=== PATIENT | female | born 1980 | race Caucasian/White ===

== ENCOUNTER 2017-05-30 08:49 | Day surgery (SDC) | payer OTHER ==
[2017-05-25 14:30] VITALS: BMI 21.6
[~2017-05-30 08:49] MED LIST: DEXAMETHASONE SOD PHOSPHATE 10 MG/ML 1 ML VIAL IV ONE; HEPARIN SODIUM,PORCINE 5,000 UNIT/ML 1 ML VIAL SQ ONE; HYDROmorphone 0.5 MG/0.5 ML SYRINGE IVP PRN; LACTATED RINGERS 1,000 ML IV SCH; LIDOCAINE 1% 20 ML VIAL (10MG/ML) FOR IV START INTRADERMA PRN; Pre Op ABX Message 1 EACH MISC MISCELLANE ONE; SCOPOLAMINE 1.5MG/72HR PATCH TRANSDERM ONE
[2017-05-30] MEDS ORDERED: LIDOCAINE 1% 20 ML VIAL (10MG/ML) FOR IV START INTRADERMA ONE (10:16)
[2017-05-30] MEDS: ONDANSETRON 4 MG/2 ML VIAL IVP STA ×2 (10:25→10:30)
[2017-05-30] MEDS: MIDAZOLAM 2 MG/2 ML VIAL IV ONE ×2 (10:26→10:35)
[2017-05-30] MEDS ORDERED: LIDOCAINE 1% INJ 10MG/ML (20 ML MDV) ONE (10:54)
[2017-05-30] MEDS ORDERED: fentaNYL (PF) 50 MCG/ML 2 ML AMP ONE (10:54)
[2017-05-30] MEDS ORDERED: PROPOFOL 10 MG/ML 20 ML VIAL IV ONE (10:54)
[2017-05-30] MEDS ORDERED: LIDOCAINE 1% (PF) 10MG/ML VIAL SQ ONE ×2 (11:06)
[2017-05-30] MEDS ORDERED: NALOXONE 0.4 MG/ML 1 ML VIAL IV PRN (11:26)
[2017-05-30] MEDS ORDERED: ACETAMINOPHEN TAB 325 MG TAB PO PRN (11:26)
[2017-05-30 11:32] VITALS: TEMP 97.2
--- NOTE | 2017-05-30 11:37 | P.OP ---
Date of Procedure: 05/30/17 Procedure(s) Performed: PREOPERATIVE DIAGNOSIS: Back cyst POSTOPERATIVE DIAGNOSIS: Same PROCEDURE: Excision back cyst SURGEON: Celia EBL: Minimal ANESTHESIA: sedation COMPLICATIONS: None OPERATIVE PROCEDURE: Patient was placed under sedation anesthesia and then placed in the right decubitus position. An eliptical incision was made in the left lower back overlying the palpable mass. Dissection through the subcutaneous tissues took place using electrocautery. The cystic mass was identified and fully excised with the use of blunt dissection and Sharp dissection. This measured 1.5 x 2.5 cm in size. Subcutaneous tissues were then closed using 3-0 Vicryl sutures and the skin using 4-0 Monocryl sutures. Steri-Strips and sterile dressings were applied. DISPOSITION: Stable to recovery room
[2017-05-30] MEDS ORDERED: ONDANSETRON 4 MG/2 ML VIAL IVP ONE (12:09)
[2017-05-30] MEDS ORDERED: LACTATED RINGERS 1,000 ML IV ONE (12:10)
[2017-05-30] MEDS ORDERED: KETOROLAC 30 MG/ML 1 ML VIAL IVP ONE ×2 (13:25→13:28)
[2017-05-30] MEDS ORDERED: PROMETHAZINE INJ 25 MG/ML 1 ML VIAL IVPB ONE (13:29)
[2017-05-30 13:38] VITALS: BP 99/67; PULSE 62; RESP 16
== END 2017-05-30 14:45 | disposition home or self-care (01) ==
LOC: OR 08:49
PROVIDERS: ATTEND Surgery
DX: L72.3 Sebaceous cyst (principal); Z79.899 Other long term (current) drug therapy; Z88.1 Allergy status to other antibiotic agents; Z88.5 Allergy status to narcotic agent; Z88.2 Allergy status to sulfonamides; Z88.6 Allergy status to analgesic agent; Z88.8 Allergy status to other drugs, medicaments and biological substances
CPT/HCPCS: 88304; 11403; J2250; J1644; J1100; J2550; J2405; J2001 ×2; J3010; J1885; J2704

== ENCOUNTER 2018-04-01 10:23 | Emergency (ER) | payer OTHER ==
[2018-04-01 10:37] VITALS: RESP 18
[2018-04-01] MEDS ORDERED: LORazepam 2 MG/ML INJ IV STA (10:45)
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
[2018-04-01] MEDS ORDERED: KETOROLAC 30 MG/ML 1 ML VIAL IVP STA (12:12)
[2018-04-01 12:28] VITALS: BP 100/60; PULSE 100; TEMP 98.2
== END 2018-04-01 12:37 | disposition home or self-care (01) ==
LOC: EC 10:23
DX: S06.0X0A Concussion without loss of consciousness, initial encounter (principal); Z87.891 Personal history of nicotine dependence; Z88.2 Allergy status to sulfonamides; Z88.1 Allergy status to other antibiotic agents; Z88.5 Allergy status to narcotic agent; Z88.8 Allergy status to other drugs, medicaments and biological substances; V43.52XA Car driver injured in collision with other type car in traffic accident, initial encounter
CPT/HCPCS: 72125; 70486; 70450; 99284; 96374; 96375; J2060; J1885

== ENCOUNTER 2018-04-06 10:26 | Emergency (ER) | payer OTHER ==
[2018-04-06 10:30] VITALS: BP 112/71; PULSE 112; RESP 18; TEMP 98
[2018-04-06] MEDS ORDERED: ACETAMINOPHEN TAB 500 MG TAB PO STA (11:08)
[2018-04-06] MEDS ORDERED: ONDANSETRON 4 MG TAB PO STA (11:08)
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
== END 2018-04-06 12:50 | disposition home or self-care (01) ==
LOC: EC 10:26
DX: S06.0X0D Concussion without loss of consciousness, subsequent encounter (principal); Z86.73 Personal history of transient ischemic attack (TIA), and cerebral infarction without residual deficits; Z87.891 Personal history of nicotine dependence; Z88.5 Allergy status to narcotic agent; Z88.1 Allergy status to other antibiotic agents; Z88.2 Allergy status to sulfonamides; Z88.8 Allergy status to other drugs, medicaments and biological substances; V89.2XXD Person injured in unspecified motor-vehicle accident, traffic, subsequent encounter
CPT/HCPCS: 99284

== ENCOUNTER → 2018-05-10 | Outpatient (CLI) | payer OTHER ==
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
== END | disposition home or self-care (01) ==
LOC: RADMRIMAIN 05:51
PROVIDERS: ATTEND Family Medicine
DX: R93.0 Abnormal findings on diagnostic imaging of skull and head, not elsewhere classified (principal)
CPT/HCPCS: 70551

== ENCOUNTER → 2018-11-01 | Outpatient (CLI) | payer OTHER ==
[2018-11-01 14:41] LABS: Basophils % (A) 1 %; Eosinophils # (A) 0.1 k/uL (0-0.7); Eosinophils % (A) 1 %; HCT 43.3 % (34.0-46.0); HGB 14.3 gm/dL (11.4-16.0); Lymphocytes # (A) 1.9 k/uL (1.0-4.8); Lymphocytes % (A) 32 %; MCH 34.1 pg (25.0-35.0); MCHC 33.1 g/dL (31.0-37.0); Macrocytosis Slight; Mean Platelet Volume 7.5; Monocytes # (A) 0.3 k/uL (0-1.0); Monocytes % (A) 6 %; Neutrophils # (A) 3.6 k/uL (1.3-7.7); Neutrophils % (A) 59 %; Platelet Count 225 k/uL (150-450); RDW 12.8 % (11.5-15.5); WBC 6.1 k/uL (3.8-10.6)
[2018-11-01 19:42] LABS: Helicobacter pylori IgG Abs 0.48 U/mL
[2018-11-01 20:28] LABS: Albumin 4.4 g/dL (3.80-4.90); Albumin/Globulin Ratio 1.69 (1.60-3.17); Anion Gap 9.5 mmol/L (4.00-12.00); Calcium 9.2 mg/dL (8.7-10.3); Carbon Dioxide 26.5 mmol/L (21.6-31.8); Globulin 2.6 g/dL (1.6-3.3); Potassium 4.4 mmol/L (3.5-5.5); Total Bilirubin 0.7 mg/dL (0.2-1.2)
[2018-11-01 20:42] LABS: T4, Free (Free Thyroxine) 1.2 ng/dL (0.80-1.80)
[2018-11-01 21:01] LABS: Gliadin AB IgA, Unit 0.7 U/mL
== END | disposition home or self-care (01) ==
LOC: LABWHC1 14:02
PROVIDERS: ATTEND Internal Medicine
DX: R10.13 Epigastric pain (principal)
CPT/HCPCS: 36415; 80053; 82150; 83516; 83690; 84439; 84443; 85025; 86677

== ENCOUNTER → 2019-05-12 | Outpatient (CLI) | payer OTHER ==
--- NOTE | 2019-05-12 15:49 | US ---
EXAMINATION TYPE: US carotid duplex BILAT DATE OF EXAM: 05/12/2019 COMPARISON: Prior carotid ultrasound November 15, 2015. 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 TIA x 2 years ago, No HTN EXAM MEASUREMENTS: RIGHT: Peak Systolic Velocity (PSV) cm/sec ----- Right CCA: 81.6 ----- Right ICA: 94.6 ----- Right ECA: 85.5 ICA/CCA ratio: 1.2 RIGHT: End Diastole cm/sec ----- Right CCA: 27.3 ----- Right ICA: 42.5 ----- Right ECA: 16.1 LEFT: Peak Systolic Velocity (PSV) cm/sec ----- Left CCA: 88.9 ----- Left ICA: 84.4 ----- Left ECA: 84.4 ICA/CCA ratio: 0.9 LEFT: End Diastole cm/sec ----- Left CCA: 25.4 ----- Left ICA: 34.8 ----- Left ECA: 12.8 VERTEBRALS (direction of flow): Right Vertebral: Antegrade Left Vertebral: Antegrade Rhythm: Normal Shay scale images showed no significant focal plaque at carotid bulb level bilaterally. IMPRESSION: No hemodynamically significant stenosis is seen in either internal carotid artery. Criteria for Assigning % of Stenosis / Diameter reduction (Estimation based on the indirect measurements of the internal carotid artery velocities (ICA PSV). 1. Normal (no stenosis)=ICA PSV < 125 cm/s: ratio < 2.0: ICA EDV<40 cm/s. 2. Less than 50% stenosis=ICA PSV < 125 cm/s: ratio < 2.0: ICA EDV<40 cm/s. 3. 50 to 69% stenosis=ICA PSV of 125 to 230 cm/s: ration 2.0 ? 4.0: ICA EDV 40-100 cm/s. 4. Greater than 70% stenosis to near occlusion= ICA PSV > 230 cm/s: ratio > 4.0: ICA EDV > 100 cm/s. 5. Near occlusion= ICA PSV velocities may be low or undetectable: variable ratio and ICA EDV. 6. Total occlusion=unable to detect flow.
--- NOTE | 2019-05-12 16:26 | MR ---
EXAMINATION TYPE: MR brain wo con DATE OF EXAM: 05/12/2019, MRI brain 05/10/2018 COMPARISON: CT brain 04/01/2018 HISTORY: H02.402, G 45.9, G 43.009 CONTRAST: Performed utilizing 0 mL intravenous Gadavist gadolinium contrast. TECHNIQUE: Multiplanar, multiecho imaging on a 3.0 Anusha magnet is performed through the brain. Stud y is performed within 24 hours of arrival to the hospital. The craniovertebral junction is normal. The pituitary is normal. Portion of the optic chiasm visual ized is normal. There are normal vascular flow voids within the visualized intracranial cerebral vasc ulature. The anterior and posterior communicating arteries are patent. Diffusion-weighted imaging is performed. No abnormal hyperintensity is present to suggest an acute i ntracranial infarct or acute ischemic change. There is a punctate subcortical white matter change in the right parietal lobe, stable from compariso n a prior right frontal lobe white matter change is not evident currently. Temporal lobes are symmetr ical Ventricles and sulci are appropriate for the patient age. The globes as visualized are normal. Extraocular muscles and optic nerves appear normal. IMPRESSIONS: 1. Normal noncontrast MRI brain. 2. White matter changes, not out of proportion to the patient age, are less evident on the current ex am.
--- NOTE | 2019-05-13 07:26 | ECHOF ---
Referral Reason:H02.402 Ptosis of left eyelid / G45.9 TIA /G43.009 MEASUREMENTS -------- HEIGHT: 160.0 cm WEIGHT: 51.7 kg BP: 106/61 RVIDd: 2.5 cm (< 3.3) IVSd: 1.0 cm (0.6 - 1.1) LVIDd: 4.0 cm (3.9 - 5.3) LVPWd: 0.9 cm (0.6 - 1.1) IVSs: 1.4 cm LVIDs: 2.6 cm LVPWs: 1.3 cm LA Diam: 2.6 cm (2.7 - 3.8) LAESV Index (A-L): 15.44 ml/m Ao Diam: 2.8 cm (2.0 - 3.7) AV Cusp: 2.1 cm (1.5 - 2.6) MV EXCURSION: 15.987 mm (> 18.000) MV EF SLOPE: 115 mm/s (70 - 150) EPSS: 0.3 cm MV E Michael: 1.01 m/s MV DecT: 379 ms MV A Michael: 0.49 m/s MV E/A Ratio: 2.08 FINDINGS -------- Sinus rhythm. This was a technically good study. The left ventricular size is normal. Left ventricular wall thickness is normal. Overall left vent ricular systolic function is normal with, an EF between 55 - 60 %. The right ventricle is normal in size. Normal LA size by volume 22+/-6 ml/m2. The right atrial size is normal. Interatrial and interventricular septum intact. The aortic valve is trileaflet, and appears structurally normal. No aortic stenosis or regurgitation. The mitral valve is normal. There is trace to mild mitral regurgitation. Mild tricuspid regurgitation present. Right ventricular systolic pressure is normal at < 35 mmHg. Trace/mild (physiologic) pulmonic regurgitation. The aortic root size is normal. Normal inferior vena cava with normal inspiratory collapse consistent with estimated right atrial pre ssure of 5 mmHg. There is no pericardial effusion. CONCLUSIONS -------- 1. Sinus rhythm. 2. This was a technically good study. 3. The left ventricular size is normal. 4. Left ventricular wall thickness is normal. 5. Overall left ventricular systolic function is normal with, an EF between 55 - 60 %. 6. Normal LA size by volume 22+/-6 ml/m2. 7. The aortic valve is trileaflet, and appears structurally normal. No aortic stenosis or regurgitati on. 8. There is trace to mild mitral regurgitation. 9. Mild tricuspid regurgitation present. 10. Right ventricular systolic pressure is normal at < 35 mmHg. 11. Trace/mild (physiologic) pulmonic regurgitation. 12. The aortic root size is normal. 13. Normal inferior vena cava with normal inspiratory collapse consistent with estimated right atrial pressure of 5 mmHg. 14. There is no pericardial effusion. SPECIALTY SALES REPRESENTATIVE: Samantha Hudson RDCS
== END ==
LOC: RADECHMAIN 14:48
PROVIDERS: ATTEND Psychiatry & Neurology Neurology
DX: R90.89 Other abnormal findings on diagnostic imaging of central nervous system (principal); H02.402 Unspecified ptosis of left eyelid; G45.9 Transient cerebral ischemic attack, unspecified
CPT/HCPCS: 70551; 93306; 93880

== ENCOUNTER → 2019-06-27 | Outpatient (CLI) | payer OTHER ==
--- NOTE | 2019-06-28 14:42 | MR ---
EXAMINATION TYPE: MR angio head wo con DATE OF EXAM: 06/27/2019 COMPARISON: None HISTORY: memory loss TECHNIQUE: Time of flight images focusing on the [place] of [place] were performed without contrast. FINDINGS: There is arterial flow in the anterior middle and posterior cerebral arteries bilaterally. There is bilateral distal internal carotid artery flow. There is arterial flow in the vertebrobasilar artery system. There is no evidence of hemodynamic stenosis. I see no evidence of aneurysm or neovas cularity. There is no mass effect. IMPRESSION: Normal MR angiogram of the brain.
== END | disposition home or self-care (01) ==
LOC: RADMRIMAIN 15:25
PROVIDERS: ATTEND Psychiatry & Neurology Neurology
DX: G43.009 Migraine without aura, not intractable, without status migrainosus (principal); H02.402 Unspecified ptosis of left eyelid; Z86.73 Personal history of transient ischemic attack (TIA), and cerebral infarction without residual deficits
CPT/HCPCS: 70544

== ENCOUNTER 2020-01-28 11:32 | Emergency (ER) | payer OTHER ==
[2020-01-28 11:35] VITALS: BP 112/75; PULSE 59; RESP 18; TEMP 98.1
[2020-01-28] MEDS ORDERED: CEPHALEXIN 500MG STARTER PACK 4 CAP BTL PO STA (11:51)
[2020-01-28] MEDS ORDERED: DIPH,PERTUS(ACELL)TETVAC-LF 0.5 ML VIAL IM ONE (11:51)
[2020-01-28] MEDS ORDERED: IBUPROFEN 600 MG TAB PO STA (11:51)
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
--- NOTE | 2020-01-28 12:28 | ED ---
Wound/Laceration HPI - General Chief Complaint: Wound/Laceration Stated Complaint: foot pain Time Seen by Provider: 01/28/20 11:39 Source: patient Mode of arrival: ambulatory Limitations: no limitations - History of Present Illness Initial Comments: 39-year-old female patient presents to the emergency department today for evaluation of wound to the right heel. Patient states yesterday evening she was fishing, states she became excited and was jumping and her barefoot came down on to exposed rebar. Patient states that the area has been quite painful. She has pain especially with walking and applying pressure to the site. She did cleanse the area and applied antibacterial ointment. Patient has been taking Tylenol but denies other medication use. She denies any other injuries. She is unsure when her last tetanus vaccine was administered. Patient denies any headache, neck pain, back pain, chest pain, shortness of breath, dizziness, weakness, abdominal pain, nausea, vomiting, or difficulties with bowel movements or urination. - Related Data Home Medications Medication Instructions Recorded Confirmed ALPRAZolam [Xanax] 1 mg PO TID PRN 04/01/18 02/11/19 Previous Rx's Medication Instructions Recorded Acetaminophen Tab [Tylenol Tab] 1,000 mg PO Q8HR #20 tablet 04/06/18 Ondansetron Odt [Zofran Odt] 4 mg PO Q8HR PRN #20 tab 04/06/18 Cephalexin [Keflex] 500 mg PO BID #14 cap 01/28/20 Ibuprofen [Motrin] 600 mg PO Q8HR PRN #30 tab 01/28/20 Allergies Allergy/AdvReac Type Severity Reaction Status Date / Time Antihistamines - Alkylamine Allergy Rash/Hives Verified 01/28/20 11:36 Antihistamines - Ethanolamine Allergy Rash/Hives Verified 01/28/20 11:36 Antihistamines - Allergy Rash/Hives Verified 01/28/20 11:36 Ethylenediamine Antihistamines - Piperazine Allergy Rash/Hives Verified 01/28/20 11:36 Antihistamines - Piperidine Allergy Rash/Hives Verified 01/28/20 11:36 codeine Allergy Anaphylaxis Verified 01/28/20 11:36 diphenhydramine HCl Allergy Vomiting Verified 01/28/20 11:36 [From Benadryl] erythromycin base Allergy Unknown Verified 01/28/20 11:36 morphine Allergy Unknown Verified 01/28/20 11:36 Sulfa (Sulfonamide Allergy Unknown Verified 01/28/20 11:36 Antibiotics) sulfamethoxazole Allergy Unknown Verified 01/28/20 11:36 [From Bactrim] trimethoprim [From Bactrim] Allergy Unknown Verified 01/28/20 11:36 hydromorphone [From Dilaudid] AdvReac Unknown Verified 01/28/20 11:36 bioxen Allergy Unknown Uncoded 01/28/20 11:36 Review of Systems ROS Statement: Those systems with pertinent positive or pertinent negative responses have been documented in the HPI. ROS Other: All systems not noted in ROS Statement are negative. Past Medical History Past Medical History: Cancer, CVA/TIA, GERD/Reflux Additional Past Medical History / Comment(s): anxiety, cervical cancer 3 years ago. States has palpitations @ times. States not eating much, has heartburn and problems with constipation. History of Any Multi-Drug Resistant Organisms: None Reported Past Surgical History: Appendectomy, Cholecystectomy, Hysterectomy Additional Past Surgical History / Comment(s): Laprascopy x 2. Past Anesthesia/Blood Transfusion Reactions: Postoperative Nausea & Vomiting (PONV) Past Psychological History: Anxiety, Panic Disorder Smoking Status: Former smoker - Past Family History Mother Family Medical History: No Reported History General Exam Limitations: no limitations General appearance: alert, in no apparent distress, other (This is a well- developed, well-nourished adult female patient in no acute distress. Vital signs upon presentation are temperature 98.1F, pulse 59, respirations 18, blood pressure 112/75, pulse ox 100% on room air) Eye exam: Present: normal appearance, PERRL, EOMI. Absent: scleral icterus, conjunctival injection, periorbital swelling ENT exam: Present: normal exam, normal oropharynx, mucous membranes moist Respiratory exam: Present: normal lung sounds bilaterally. Absent: respiratory distress, wheezes, rales, rhonchi, stridor Cardiovascular Exam: Present: regular rate, normal rhythm, normal heart sounds. Absent: systolic murmur, diastolic murmur, rubs, gallop, clicks Extremities exam: Present: full ROM, tenderness (Right heel), normal capillary refill, other (There is abrasion and superficial puncture wound to the right heel. There is surrounding tenderness. No surrounding erythema or drainage. Skin is otherwise pink, warm, dry. Cap refills less than 3 seconds. Pedal and posttibial pulses are 2+ and equal bilaterally.). Absent: normal inspection, pedal edema, joint swelling, calf tenderness Neurological exam: Present: alert, oriented X3, CN II-XII intact Psychiatric exam: Present: normal affect, normal mood Skin exam: Present: warm, dry, intact, normal color. Absent: rash Course Vital Signs 01/28/20 11:32 Temperature 98.1 F Pulse Rate 59 L Respiratory 18 Rate Blood Pressure 112/75 O2 Sat by Pulse 100 Oximetry Medical Decision Making - Medical Decision Making 39-year-old female patient presented to the emergency department today for evaluation of right heel injury. Physical examination did reveal abrasion/puncture wound to the right heel with no surrounding erythema or drainage. There is surrounding tenderness. X-ray was obtained and showed no evidence for foreign body, did show soft tissue swelling. Patient was given anti-inflammatory pain medication. She was started on Keflex. She'll be instructed to follow-up with her primary care physician for recheck in 1-2 days. Return parameters were discussed in detail. She verbalizes understanding and agrees with this plan. - Radiology Data Radiology results: report reviewed, image reviewed X-ray of the right foot was obtained. Report was reviewed in its entirety. Impression by Dr. Skinner shows no acute fracture dislocation evident in the right foot. Joint spaces and the right foot appear within normal limits. Mild to moderate subcutaneous edema along the plantar surface hindfoot level without suspicious radiodense foreign body. Disposition Clinical Impression: Injury of heel, Puncture wound Disposition: HOME SELF-CARE Condition: Good Instructions (If sedation given, give patient instructions): Puncture Wound (ED), Acute Wound Care (ED) Additional Instructions: Keep area clean and dry. Cleanse twice daily with warm water and antibacterial soap. Cover with antibiotic ointment. Avoid direct pressure on the wound. Use crutches if you have them. Take Tylenol Motrin for pain control. Complete antibiotic prescription in full. Follow-up with your primary care physician for recheck in 1-2 days. Return to the emergency department immediately for any new, worsening, or concerning symptoms Prescriptions: Cephalexin [Keflex] 500 mg PO BID #14 cap Ibuprofen [Motrin] 600 mg PO Q8HR PRN #30 tab PRN Reason: Pain Is patient prescribed a controlled substance at d/c from ED?: No Referrals: Isra Valdes DO [Primary Care Provider] - 1-2 days Time of Disposition: 12:28
== END 2020-01-28 12:41 | disposition home or self-care (01) ==
LOC: EC 11:32
DX: S91.331A Puncture wound without foreign body, right foot, initial encounter (principal); F41.9 Anxiety disorder, unspecified; Z88.1 Allergy status to other antibiotic agents; Z88.2 Allergy status to sulfonamides; Z88.5 Allergy status to narcotic agent; Z88.8 Allergy status to other drugs, medicaments and biological substances; Z79.899 Other long term (current) drug therapy; Z86.73 Personal history of transient ischemic attack (TIA), and cerebral infarction without residual deficits; Z87.891 Personal history of nicotine dependence; Z90.89 Acquired absence of other organs; Z90.49 Acquired absence of other specified parts of digestive tract; Z90.710 Acquired absence of both cervix and uterus; Z85.41 Personal history of malignant neoplasm of cervix uteri; W22.09XA Striking against other stationary object, initial encounter; Y93.39 Activity, other involving climbing, rappelling and jumping off; Y92.89 Other specified places as the place of occurrence of the external cause; Y99.8 Other external cause status; Z23 Encounter for immunization
CPT/HCPCS: 90471; 90715; 99283

== ENCOUNTER 2020-03-18 07:14 | Day surgery (SDC) | payer OTHER ==
[2020-03-16 12:46] VITALS: BMI 19.1
[~2020-03-18 07:14] MED LIST changes: -DEXAMETHASONE SOD PHOSPHATE 10 MG/ML 1 ML VIAL IV ONE; -HEPARIN SODIUM,PORCINE 5,000 UNIT/ML 1 ML VIAL SQ ONE; -HYDROmorphone 0.5 MG/0.5 ML SYRINGE IVP PRN; -LIDOCAINE 1% 20 ML VIAL (10MG/ML) FOR IV START INTRADERMA PRN; -SCOPOLAMINE 1.5MG/72HR PATCH TRANSDERM ONE; +fentaNYL (PF) 50 MCG/ML 2 ML AMP IV PRN
[2020-03-18 07:30] VITALS: TEMP 97.3
[2020-03-18] MEDS ORDERED: ONDANSETRON 4 MG/2 ML VIAL ONE (07:30)
[2020-03-18] MEDS ORDERED: SCOPOLAMINE 1.5MG/72HR PATCH TRANSDERM ONE (07:39)
--- NOTE | 2020-03-18 07:46 | P.GSHP ---
History of Present Illness H&P Date: 03/18/20 CHIEF COMPLAINT: Forehead mass HISTORY OF PRESENT ILLNESS: The patient is a 40 year-old female with history of mass along the forehead. She presents today for surgical excision. PAST MEDICAL HISTORY: Please see list. PAST SURGICAL HISTORY: Please see list. MEDICATIONS: Please see list. ALLERGIES: Please see list. SOCIAL HISTORY: No illicit drug use FAMILY HISTORY: No reports of Crohn disease or ulcerative colitis. REVIEW OF ORGAN SYSTEMS: CONSTITUTIONAL: No reports of fevers or chills. GI: Denies any blood in stools or constipation. PHYSICAL EXAM: VITAL SIGNS: Stable SKIN: Well perfused. Good skin turgor. 2 cm lesion overlying the forehead Musculoskeletal: No clubbing cyanosis or edema GENERAL: Well developed and in no acute distress. Pleasant. HEENT: No sclera icterus. Extraocular movements grossly intact. Moist buccal mucosa. Head is atraumatic, normocephalic. Hears conversational speech. No nasal drainage. NECK: Supple without lymphadenopathy. No JV distention. CHEST: Non-labored respirations and equal bilateral excursions. CARDIOVASCULAR: Regular rate and rhythm. Palpable 2+ radial pulses. ABDOMEN: Soft. Non-tender. Nondistended. NEUROLOGIC: No focal or lateralizing signs. PSYCH: Appropriate affect. Alert and oriented to person, place and time. ASSESSMENT: 1. Forehead mass PLAN: 1. Will proceed with excision of forehead mass. Benefits and risks including potential scarring were reviewed. 2. DVT prophylaxis. 3. Antibiotic prophylaxis. 4. Time of recovery, at least one week. Past Medical History Past Medical History: Cancer, GERD/Reflux Additional Past Medical History / Comment(s): migraines, hx cervical cancer, "hives a lot from allergies", History of Any Multi-Drug Resistant Organisms: None Reported Past Surgical History: Appendectomy, Cholecystectomy, Hysterectomy Additional Past Surgical History / Comment(s): mult laparoscopies Past Anesthesia/Blood Transfusion Reactions: Family History of Problems w/ Anesthesia, Motion Sickness, Postoperative Nausea & Vomiting (PONV) Additional Past Anesthesia/Blood Transfusion Reaction / Comment(s): "grandmother had hyperthermia with anesthesia, not sure if it was malignant hyperthermia". pt states she was tested and ok Smoking Status: Former smoker - Past Family History Sister(s) Family Medical History: Cancer Medications and Allergies Home Medications Medication Instructions Recorded Confirmed Type ALPRAZolam [Xanax] 0.5 mg PO BID 04/01/18 03/18/20 History Allergies Allergy/AdvReac Type Severity Reaction Status Date / Time adhesive tape Allergy blisters Verified 03/18/20 07:26 Antihistamines - Alkylamine Allergy Rash/Hives Verified 03/18/20 07:26 Antihistamines - Ethanolamine Allergy Rash/Hives Verified 03/18/20 07:26 Antihistamines - Allergy Rash/Hives Verified 03/18/20 07:26 Ethylenediamine Antihistamines - Piperazine Allergy Rash/Hives Verified 03/18/20 07:26 Antihistamines - Piperidine Allergy Rash/Hives Verified 03/18/20 07:26 codeine Allergy Anaphylaxis Verified 03/18/20 07:26 diphenhydramine HCl Allergy Vomiting Verified 03/18/20 07:26 [From Benadryl] erythromycin base Allergy Unknown Verified 03/18/20 07:26 morphine Allergy Unknown Verified 03/18/20 07:26 Sulfa (Sulfonamide Allergy Unknown Verified 03/18/20 07:26 Antibiotics) sulfamethoxazole Allergy Unknown Verified 03/18/20 07:26 [From Bactrim] trimethoprim [From Bactrim] Allergy Unknown Verified 03/18/20 07:26 hydromorphone [From Dilaudid] AdvReac Unknown Verified 03/18/20 07:26 bioxen Allergy Unknown Uncoded 03/18/20 07:26 Surgical - Exam Vital Signs Temp Pulse Resp BP Pulse Ox 97.3 F L 64 16 116/64 100 03/18/20 07:28 03/18/20 07:28 03/18/20 07:28 03/18/20 07:28 03/18/20 07:28
[2020-03-18] MEDS ORDERED: ACETAMINOPHEN TAB 325 MG TAB PO STA (07:47)
[2020-03-18] MEDS ORDERED: SCOPOLAMINE 1.5MG/72HR PATCH TRANSDERM STA (07:48)
[2020-03-18] MEDS ORDERED: DEXAMETHASONE SOD PHOSPHATE 10 MG/ML 1 ML VIAL IV ONE (07:48)
[2020-03-18] MEDS ORDERED: MIDAZOLAM 2 MG/2 ML VIAL IV ONE (07:48)
[2020-03-18] MEDS ORDERED: MIDAZOLAM 2 MG/2 ML VIAL ONE (08:38)
[2020-03-18] MEDS ORDERED: LIDOCAINE 1% INJ 10MG/ML (20 ML MDV) ONE (08:38)
[2020-03-18] MEDS ORDERED: ePHEDrine SULFATE/0.9% NACL/PF 50 MG/5 ML SYRINGE IV ONE (08:38)
[2020-03-18] MEDS ORDERED: fentaNYL (PF) 50 MCG/ML 2 ML AMP ONE (08:38)
[2020-03-18] MEDS ORDERED: PROPOFOL 10 MG/ML 20 ML VIAL IV ONE (08:38)
[2020-03-18] MEDS ORDERED: BUPIVACAIN-EPI 0.25%-1:200,000 30 ML VIAL SQ ONE ×2 (09:06)
[2020-03-18] MEDS ORDERED: LACTATED RINGERS 1,000 ML IV ONE (09:28)
--- NOTE | 2020-03-18 09:59 | P.OP ---
Date of Procedure: 03/18/20 Description of Procedure: SURGEON: YAIMA BORGES MD PRECISION INSPECTOR: None. PREOPERATIVE DIAGNOSES: 1. Central forehead tumor, 1 cm 2. Generalized anxiety disorder 3. Family history of malignant hyperthermia POSTOPERATIVE DIAGNOSES: 1. Central forehead tumor, 1 cm 2. Generalized anxiety disorder 3. Family history of malignant hyperthermia PROCEDURES PERFORMED: 1. Excision of deep subcutaneous forehead tumor, 3 x 1 cm 2. Complex closure forehead incision, 3 cm Anesthesia: LMA local Estimated Blood Loss (ml): 10 Pathology: other (Forehead mass) Condition: stable Disposition: same day COMPLICATIONS: None. INDICATIONS: The patient is a 40-year-old female who presents with symptomatic f orehead tumor. Benefits and risks of surgical intervention were described including bleeding, pain, infection, cosmetic deformity, including scarring were reviewed in detail of which the patient wished to proceed. Informed consent was obtained. DESCRIPTION OR PROCEDURE: Patient was brought into the operating room In place in supine position. After induction, the forehead was prepped and draped in a standard sterile fashion. Tegaderm was placed along the draping to prevent exposure to the eyes. Timeout protocol was confirmed with the surgical team regarding the patient's name, procedure to be performed including preoperative medications. DVT prophylaxis was confirmed. The lesion was measured with a ruler and an elliptical transverse marking 3 x 1 cm was placed using indelible marker. A field block was placed of the forehead using 10 mL local. A transverse elliptical incision using #15 blade was made along the marking into the deep subcutaneous tissue to the fascia. Electro-Bov ie cautery was used to incise to the fascia with dissection and elevation of the tissue. Skin flaps were elevated and developed with undermining to prepare for closure of the excision. 0 Vicryl for the deep subcutaneous tissue followed 3-0 Vicryl in interrupted fashion was placed. Then 4-0 Monocryl were placed along the incision. In a running subcuticular fashion. The skin was cleansed with hydrogen peroxide followed Exofin and skin colored Steri-strips. At the end of the procedure, needle, sponge, and instrument count was verified correct by ophthalmic medical technician. The patient tolerated the procedure well. Operative Findings: 1. Excision of deep subcutaneous tumor with undermining for complex closure 3 cm. Plan - Discharge Summary Discharge Rx Participant: Yes New Discharge Prescriptions: New Acetaminophen Tab [Tylenol Tab] 500 mg PO Q6H PRN #30 tablet PRN Reason: Pain Continue ALPRAZolam [Xanax] 0.5 mg PO BID Discharge Medication List ALPRAZolam [Xanax] 0.5 mg PO BID 04/01/18 [History] Acetaminophen Tab [Tylenol Tab] 500 mg PO Q6H PRN #30 tablet 03/18/20 [Rx] Follow up Appointment(s)/Referral(s): Yaima Borges MD [STAFF PHYSICIAN] - 03/25/20 Patient Instructions/Handouts: Dermal Cyst Excision (DC) Activity/Diet/Wound Care/Special Instructions: DO NOT REMOVE DRESSING! KEEP DRESSING DRY. Use ice along the dressing to minimize bruising. May gently wash around the dressing with soap and water. Sleep on elevated pillows at least 2-3 to prevent swelling around the face and eyes. Bruising around the eyes resolve within 1-2 weeks. Please take Tylenol scheduled for next 2-3 days. Discharge Disposition: HOME SELF-CARE
[2020-03-18 10:00] VITALS: RESP 16
[2020-03-18 11:21] VITALS: BP 98/61; PULSE 60
== END 2020-03-18 11:44 | disposition home or self-care (01) ==
LOC: OR 07:14
PROVIDERS: ATTEND Surgery Plastic and Reconstructive Surgery
DX: L72.0 Epidermal cyst (principal); L73.9 Follicular disorder, unspecified; F41.1 Generalized anxiety disorder; G43.909 Migraine, unspecified, not intractable, without status migrainosus; K21.9 Gastro-esophageal reflux disease without esophagitis; Z87.891 Personal history of nicotine dependence; Z85.41 Personal history of malignant neoplasm of cervix uteri; Z79.899 Other long term (current) drug therapy; Z91.048 Other nonmedicinal substance allergy status; Z88.1 Allergy status to other antibiotic agents; Z88.5 Allergy status to narcotic agent; Z88.2 Allergy status to sulfonamides; Z88.8 Allergy status to other drugs, medicaments and biological substances; Z90.710 Acquired absence of both cervix and uterus; Z90.49 Acquired absence of other specified parts of digestive tract; Z80.9 Family history of malignant neoplasm, unspecified; Z84.89 Family history of other specified conditions
CPT/HCPCS: 88304; 11443; 13132; J2250; J1100; J0690; J2405; J2001; J3010; J2704

== ENCOUNTER → 2020-06-11 | Outpatient (CLI) | payer OTHER | END | disposition home or self-care (01) | LOC: LABWHC1 15:53 | PROVIDERS: ATTEND Family Medicine | DX: Z20.828 Contact with and (suspected) exposure to other viral communicable diseases (principal); Z03.818 Encounter for observation for suspected exposure to other biological agents ruled out | CPT/HCPCS: U0003; C9803 ==

== ENCOUNTER → 2020-07-28 | Outpatient (CLI) | payer OTHER ==
--- NOTE | 2020-07-29 08:37 | MM ---
Reason for exam: clinical finding. Baseline mammogram. History: Family history of breast cancer in paternal grandmother at age 47, breast cancer in 2 paternal aunts at age 60, and breast cancer in paternal cousin at age 32. Physical Findings: Nurse did not find any significant physical abnormalities on exam. MG Diagnostic Mammo w CAD ARMANDO Bilateral CC and MLO view(s) were taken. The breast tissue is heterogeneously dense. This may lower the sensitivity of mammography. There is no discrete abnormality. These results were verbally communicated with the patient and result sheet given to the patient on 07/28/20. ASSESSMENT: Negative, BI-RAD 1 RECOMMENDATION: Routine screening mammogram of both breasts in 1 year.
--- NOTE | 2020-07-29 08:40 | USB ---
Reason for exam: clinical finding. History: Family history of breast cancer in paternal grandmother at age 47, breast cancer in 2 paternal aunts at age 60, and breast cancer in paternal cousin at age 32. US Breast BILAT Technologist: Ava Caldera Right complete breast ultrasound includes all four quadrants, the retroareolar region and axilla. Finding demonstrates no cystic or solid lesion seen. Left complete breast ultrasound includes all four quadrants, the retroareolar region and axilla. Finding demonstrates no cystic or solid lesion seen. These results were verbally communicated with the patient and result sheet given to the patient on 07/28/20. ASSESSMENT: Negative, BI-RAD 1 RECOMMENDATION: Routine screening mammogram of both breasts in 1 year.
== END | disposition home or self-care (01) ==
LOC: RADMAMWWP 14:43
PROVIDERS: ATTEND Family Medicine
DX: N64.4 Mastodynia (principal)
CPT/HCPCS: 77066

== ENCOUNTER → 2021-06-16 | Outpatient (CLI) | payer BC, OTHER ==
[2021-06-17 00:30] LABS: HGB 14.3 g/dL (12.0-15.0); MCHC 33.3 g/dL (32.0-37.0); MCV 102.1 fL (80.0-97.0); Platelet Count 249 X 10*3/uL (140-440); RBC 4.21 X 10*6/uL (4.10-5.20); RDW 12.2 % (11.5-14.5); WBC 5.41 X 10*3/uL (4.50-10.00)
[2021-06-17 03:21] LABS: ALT 13 U/L (8-44); AST 16 U/L (13-35); African American GFR (CKD) 121.2 (60.0-200.0); Albumin 4.7 g/dL (3.8-4.9); Alkaline Phosphatase 53 U/L (41-126); Blood Urea Nitrogen 11.4 mg/dL (9.0-27.0); Calcium 9.4 mg/dL (8.7-10.3); Carbon Dioxide 23.2 mmol/L (21.6-31.8); Chloride 103 mmol/L (96-109); Globulin 2.7 g/dL (1.6-3.3); Glucose 76 mg/dL (70-110); Non-African American GFR(CKD) 104.5 (60.0-200.0); Potassium 4.4 mmol/L (3.5-5.5); Sodium 140 mmol/L (135-145); Total Protein 7.4 g/dL (6.2-8.2)
[2021-06-17 03:39] LABS: Rheumatoid Factor, Qnt <10 IU/mL (0-15)
[2021-06-17 03:47] LABS: Erythrocyte Sedimentation Rate 15 mm/Hr (0-20)
[2021-06-17 11:59] LABS: HLA B27 NEGATIVE
[2021-06-17 14:30] LABS: C-ANCA <1:20 Titer (<1:20)
[2021-06-17 15:41] LABS: DNA Double-Stranded Indetermin (NEGATIVE)
== END | disposition home or self-care (01) ==
LOC: LABWHC1 14:07
PROVIDERS: ATTEND Family Medicine
DX: R04.0 Epistaxis (principal); M79.10 Myalgia, unspecified site
CPT/HCPCS: 36415; 80053; 81241; 83036; 84439; 84443; 85027; 85652; 86225; 86255; 86431; 86769; 86812

== ENCOUNTER 2022-01-31 12:51 | Emergency (ER) | payer BC, OTHER ==
[2022-01-31] MEDS ORDERED: LORazepam 2 MG/ML INJ IV STA (13:03)
[2022-01-31 13:04] VITALS: RESP 18
[2022-01-31 13:10] LABS: Glucose,Whole Blood 88 mg/dL (75-99)
--- NOTE | 2022-01-31 13:11 | ED ---
General Adult HPI - General Chief complaint: Dizziness Stated complaint: Nausea,Dizziness,L arm pain Time Seen by Provider: 01/31/22 12:55 Source: patient, EMS, RN notes reviewed, old records reviewed Mode of arrival: EMS - History of Present Illness Initial comments: This is a 41-year-old female who presents emergency department stating that she was driving when she suddenly became very dizzy and felt like she was spinning. Patient states there was some nausea and then there was a sharp pain in her forehead that radiated down her neck and into her arm. Patient states the pain lasted about 2 minutes and went away it reoccur one other time and lasted 2 minutes and it went away. Patient states she still feels a little lightheaded but she does not have any of this pain is at this time. Patient states this also made her quite nauseous but she was given some Zofran and and she is no longer nauseated. Patient denies any recent fever chills or cough per patient denies any chest pain or palpitation. - Related Data Home Medications Medication Instructions Recorded Confirmed ALPRAZolam [Xanax] 1 mg PO BID PRN 04/01/18 01/31/22 Ascorbic Acid [Vitamin C] 500 mg PO DAILY 01/31/22 01/31/22 Vit C/Ascorb Sod/Multivit-Min 500 mg PO DAILY 01/31/22 01/31/22 [Emergen-C 500 mg Chewable Tab] Allergies Allergy/AdvReac Type Severity Reaction Status Date / Time adhesive tape Allergy blisters Verified 01/31/22 14:31 Antihistamines - Alkylamine Allergy Rash/Hives Verified 01/31/22 14:31 Antihistamines - Ethanolamine Allergy Rash/Hives Verified 01/31/22 14:31 Antihistamines - Allergy Rash/Hives Verified 01/31/22 14:31 Ethylenediamine Antihistamines - Piperazine Allergy Rash/Hives Verified 01/31/22 14:31 Antihistamines - Piperidine Allergy Rash/Hives Verified 01/31/22 14:31 codeine Allergy Anaphylaxis Verified 01/31/22 14:31 diphenhydramine HCl Allergy Vomiting Verified 01/31/22 14:31 [From Benadryl] erythromycin base Allergy Unknown Verified 01/31/22 14:31 morphine Allergy Unknown Verified 01/31/22 14:31 Sulfa (Sulfonamide Allergy Unknown Verified 01/31/22 14:31 Antibiotics) sulfamethoxazole Allergy Unknown Verified 01/31/22 14:31 [From Bactrim] trimethoprim [From Bactrim] Allergy Unknown Verified 01/31/22 14:31 hydromorphone [From Dilaudid] AdvReac Unknown Verified 01/31/22 14:31 Penicillins AdvReac Rash/Hives Verified 01/31/22 14:31 bioxen Allergy Unknown Uncoded 03/18/20 07:26 Review of Systems ROS Statement: Those systems with pertinent positive or pertinent negative responses have been documented in the HPI. ROS Other: All systems not noted in ROS Statement are negative. Past Medical History Past Medical History: Cancer, GERD/Reflux Additional Past Medical History / Comment(s): migraines, hx cervical cancer, "hives a lot from allergies", History of Any Multi-Drug Resistant Organisms: None Reported Past Surgical History: Appendectomy, Cholecystectomy, Hysterectomy Additional Past Surgical History / Comment(s): mult laparoscopies Past Anesthesia/Blood Transfusion Reactions: Family History of Problems w/ Anesthesia, Motion Sickness, Postoperative Nausea & Vomiting (PONV) Additional Past Anesthesia/Blood Transfusion Reaction / Comment(s): "grandmother had hyperthermia with anesthesia, not sure if it was malignant hyperthermia". pt states she was tested and ok Past Psychological History: Anxiety Smoking Status: Former smoker Past Alcohol Use History: None Reported Past Drug Use History: None Reported - Past Family History Sister(s) Family Medical History: Cancer General Exam - General Exam Comments Initial Comments: GENERAL: Patient is well-developed and well-nourished. Patient is nontoxic and well-hydr ated and is in no acute distress. ENT: Neck is soft and supple. No significant lymphadenopathy is noted. Oropharynx is clear. Moist mucous membranes. Neck has full range of motion without eliciting any pain. EYES: The sclera were anicteric and conjunctiva were pink and moist. Extraocular mo vements were intact and pupils were equal round and reactive to light. Eyelids were unremarkable. PULMONARY: Unlabored respirations. Good breath sounds bilaterally. No audible rales rhonchi or wheezing was noted. CARDIOVASCULAR: There is a regular rate and rhythm without any murmurs gallops or rubs. ABDOMEN: Soft and nontender with normal bowel sounds. SKIN: Skin is clear with no lesions or rashes and otherwise unremarkable. NEUROLOGIC: Patient is alert and oriented x3. Cranial nerves II through XII are grossly intact. Motor and sensory are also intact. Normal speech, volume and content. Symmetrical smile. Fair to nose testing is normal bilaterally MUSCULOSKELETAL: Normal extremities with adequate strength and full range of motion. No lower extremity swelling or edema. No calf tenderness. LYMPHATICS: No significant lymphadenopathy is noted PSYCHIATRIC: Normal psychiatric evaluation. Course Vital Signs 01/31/22 12:53 Temperature 98.3 F Pulse Rate 68 Respiratory 18 Rate Blood Pressure 127/74 O2 Sat by Pulse 100 Oximetry Medical Decision Making - Medical Decision Making EKG shows atrial fibrillation with occasional PVC at 69 bpm QRS is 105 Q-T intervals 12/14/1989 QTC is 448. Patient's EKG shows no ST segment elevation or depression. CT of the brain shows no acute abnormality. Chest x-ray shows no acute abnormalities. Patient was ambulated in the emergency department she stated she felt like she was given a fall over when she helped someone. Patient states lying still she is much better. Patient states she has no more head pain when she did earlier. Patient states he only symptom is the feeling of being off balance. I discussed the option of keeping the patient the hospital she felt as though she could go home and follow-up. Patient's has Antivert at home so she can take Antivert if needed. - Lab Data Result diagrams: 01/31/22 13:11 01/31/22 13:11 Lab Results 01/31/22 01/31/22 01/31/22 Range/Units 13:09 13:11 13:11 WBC 8.1 (3.8-10.6) k/uL RBC 4.31 (3.80-5.40) m/uL Hgb 14.5 (11.4-16.0) gm/dL Hct 43.5 (34.0-46.0) % MCV 101.0 H (80.0-100.0) fL MCH 33.7 (25.0-35.0) pg MCHC 33.4 (31.0-37.0) g/dL RDW 12.1 (11.5-15.5) % Plt Count 223 (150-450) k/uL MPV 8.0 Neutrophils % 62 % Lymphocytes % 29 % Monocytes % 5 % Eosinophils % 1 % Basophils % 1 % Neutrophils # 5.0 (1.3-7.7) k/uL Lymphocytes # 2.3 (1.0-4.8) k/uL Monocytes # 0.4 (0-1.0) k/uL Eosinophils # 0.1 (0-0.7) k/uL Basophils # 0.1 (0-0.2) k/uL PT 10.7 (9.0-12.0) sec INR 1.0 (<1.2) APTT 24.6 (22.0-30.0) sec Sodium (137-145) mmol/L Potassium (3.5-5.1) mmol/L Chloride (98-107) mmol/L Carbon Dioxide (22-30) mmol/L Anion Gap mmol/L BUN (7-17) mg/dL Creatinine (0.52-1.04) mg/dL Est GFR (CKD-EPI)AfAm (>60 ml/min/1.73 sqM) Est GFR (CKD-EPI)NonAf (>60 ml/min/1.73 sqM) Glucose (74-99) mg/dL POC Glucose (mg/dL) 88 (75-99) mg/dL POC Glu Records Management Associate ID Shivam Solano Calcium (8.4-10.2) mg/dL Magnesium (1.6-2.3) mg/dL Total Bilirubin (0.2-1.3) mg/dL AST (14-36) U/L ALT (4-34) U/L Alkaline Phosphatase (38-126) U/L Troponin I (0.000-0.034) ng/mL Total Protein (6.3-8.2) g/dL Albumin (3.5-5.0) g/dL 01/31/22 01/31/22 Range/Units 13:11 13:11 WBC (3.8-10.6) k/uL RBC (3.80-5.40) m/uL Hgb (11.4-16.0) gm/dL Hct (34.0-46.0) % MCV (80.0-100.0) fL MCH (25.0-35.0) pg MCHC (31.0-37.0) g/dL RDW (11.5-15.5) % Plt Count (150-450) k/uL MPV Neutrophils % % Lymphocytes % % Monocytes % % Eosinophils % % Basophils % % Neutrophils # (1.3-7.7) k/uL Lymphocytes # (1.0-4.8) k/uL Monocytes # (0-1.0) k/uL Eosinophils # (0-0.7) k/uL Basophils # (0-0.2) k/uL PT (9.0-12.0) sec INR (<1.2) APTT (22.0-30.0) sec Sodium 139 (137-145) mmol/L Potassium 3.9 (3.5-5.1) mmol/L Chloride 102 (98-107) mmol/L Carbon Dioxide 23 (22-30) mmol/L Anion Gap 14 mmol/L BUN 15 (7-17) mg/dL Creatinine 0.69 (0.52-1.04) mg/dL Est GFR (CKD-EPI)AfAm >90 (>60 ml/min/1.73 sqM) Est GFR (CKD-EPI)NonAf >90 (>60 ml/min/1.73 sqM) Glucose 85 (74-99) mg/dL POC Glucose (mg/dL) (75-99) mg/dL POC Glu Records Management Associate ID Calcium 9.2 (8.4-10.2) mg/dL Magnesium 1.8 (1.6-2.3) mg/dL Total Bilirubin 0.4 (0.2-1.3) mg/dL AST 27 (14-36) U/L ALT 22 (4-34) U/L Alkaline Phosphatase 57 (38-126) U/L Troponin I <0.012 (0.000-0.034) ng/mL Total Protein 8.7 H (6.3-8.2) g/dL Albumin 4.9 (3.5-5.0) g/dL Disposition Clinical Impression: Vertigo Disposition: HOME SELF-CARE Condition: Good Instructions (If sedation given, give patient instructions): Vertigo (ED) Is patient prescribed a controlled substance at d/c from ED?: No Referrals: Isra Valdes DO [Primary Care Provider] - 1-2 days Time of Disposition: 14:52
[2022-01-31 13:36] LABS: Basophils # (A) 0.1 k/uL (0-0.2); Basophils % (A) 1 %; Eosinophils # (A) 0.1 k/uL (0-0.7); Eosinophils % (A) 1 %; HCT 43.5 % (34.0-46.0); HGB 14.5 gm/dL (11.4-16.0); Lymphocytes # (A) 2.3 k/uL (1.0-4.8); Lymphocytes % (A) 29 %; MCH 33.7 pg (25.0-35.0); MCHC 33.4 g/dL (31.0-37.0); Monocytes # (A) 0.4 k/uL (0-1.0); Monocytes % (A) 5 %; Neutrophils % (A) 62 %; Platelet Count 223 k/uL (150-450); RBC 4.31 m/uL (3.80-5.40); RDW 12.1 % (11.5-15.5); WBC 8.1 k/uL (3.8-10.6)
[2022-01-31 13:37] LABS: ALT 22 U/L (4-34); AST 27 U/L (14-36); African American GFR (CKD) >90 (>60 ml/min/1.73 sqM); Albumin 4.9 g/dL (3.5-5.0); Alkaline Phosphatase 57 U/L (38-126); Anion Gap 14 mmol/L; Blood Urea Nitrogen 15 mg/dL (7-17); Calcium 9.2 mg/dL (8.4-10.2); Carbon Dioxide 23 mmol/L (22-30); Chloride 102 mmol/L (98-107); Glucose 85 mg/dL (74-99); Magnesium 1.8 mg/dL (1.6-2.3); Non-African American GFR(CKD) >90 (>60 ml/min/1.73 sqM); Potassium 3.9 mmol/L (3.5-5.1); Sodium 139 mmol/L (137-145); Total Bilirubin 0.4 mg/dL (0.2-1.3); Total Protein 8.7 g/dL (6.3-8.2)
[2022-01-31 13:41] LABS: Partial Thromboplastin Time 24.6 sec (22.0-30.0); Prothrombin Time 10.7 sec (9.0-12.0)
--- NOTE | 2022-01-31 13:52 | CT ---
EXAMINATION TYPE: CT brain wo con DATE OF EXAM: 01/31/2022 COMPARISON: CT dated 04/01/2018 HISTORY: syncope, dizziness CT DLP: 1096.4 mGycm Automated exposure control for dose reduction was used. TECHNIQUE: CT scan of the brain is performed without IV contrast administration. FINDINGS: No acute intracranial hemorrhage. No gross acute cortical infarct. No midline shift, herniation or ve ntriculomegaly. Unremarkable mclaughlin-white matter differentiation, basal cisterns, sella and CP angles. No gross space-o ccupying lesion, vasogenic edema or mass effect. Unremarkable orbits. Clear visualized paranasal sinuses and mastoid air cells. Unremarkable calvarial bones. IMPRESSION: No acute intracranial abnormality or gross space-occupying lesion by this nonenhanced CT scan.
--- NOTE | 2022-01-31 13:54 | XR ---
EXAMINATION TYPE: XR chest 2V DATE OF EXAM: 01/31/2022 COMPARISON: 01/15/2015 HISTORY: 41-year-old female with chest pain TECHNIQUE: AP and lateral views FINDINGS: Heart normal size. Aorta and pulmonary vasculature within normal limits. Mild hyperinflation. Bilater al nipple shadows noted. No consolidation or pleural effusion. IMPRESSION: Mild hyperinflation likely related to depth of inspiration. Query any underlying smoking history. No acute cardiopulmonary process.
[2022-01-31 15:29] VITALS: BP 113/69; PULSE 63; TEMP 97.9
== END 2022-01-31 15:29 | disposition home or self-care (01) ==
LOC: EC 12:51
DX: R42 Dizziness and giddiness (principal); Z87.891 Personal history of nicotine dependence; Z88.2 Allergy status to sulfonamides; Z88.6 Allergy status to analgesic agent; Z88.1 Allergy status to other antibiotic agents; Z88.5 Allergy status to narcotic agent; Z88.0 Allergy status to penicillin; Z88.8 Allergy status to other drugs, medicaments and biological substances; Z91.048 Other nonmedicinal substance allergy status
CPT/HCPCS: 36415; 93005; 80053; 83735; 84484; 85025; 85610; 85730; 71046; 70450; 99284; 96374; J2060

== ENCOUNTER → 2022-02-06 | Outpatient (CLI) | payer BC, OTHER ==
--- NOTE | 2022-02-07 12:05 | US ---
EXAMINATION TYPE: US transvaginal DATE OF EXAM: 02/06/2022 COMPARISON: 01/12/2022 CLINICAL HISTORY: 41-year-old female N83.0 OVARIAN CYST. Left pelvic pain. Hx of ovarian cyst. Partia l hysterectomy TECHNIQUE: Transvaginal (TV). Date of LMP: unknown FINDINGS: EXAM MEASUREMENTS: Uterus: Surgically absent Endometrial Stripe: Surgically absent Right Ovary: 2.5 x 1.8 x 2.5 cm Left Ovary: 2.0 x 1.5 x 1.4 cm 1. Uterus: Surgically absent 2. Endometrium: Surgically absent 3. Right Ovary: appears wnl 4. Left Ovary: follicles noted 5. Bilateral Adnexa: appears wnl IMPRESSION: 1. Status post hysterectomy. 2. Involution of the previous dominant follicles/cysts within the left ovary. There is now normal phy siologic appearance with a few small follicles.
== END | disposition home or self-care (01) ==
LOC: RADUSWWP 16:46
PROVIDERS: ATTEND Family Medicine
DX: N83.02 Follicular cyst of left ovary (principal)
CPT/HCPCS: 76830

== ENCOUNTER → 2022-07-26 | Outpatient (CLI) | payer BC, OTHER ==
--- NOTE | 2022-07-27 18:30 | MM ---
Reason for Exam: Screening (asymptomatic). Last mammogram was performed 1 year(s) and 11 month(s) ago. Patient History: Menarche at age 12. First Full-Term at age 19. Hysterectomy at age 21. Ovarian cancer, age 21. Paternal grandmother had breast cancer, age 47. Paternal cousin had breast cancer, age 32. Paternal aunt (Farrah) had breast cancer, age 60. Paternal aunt (Jeaneth) had breast cancer, age 60. Risk Values: Trish 5 year model risk: 0.5%. NCI Lifetime model risk: 7.2%. Prior Study Comparison: 07/28/2020 Bilateral Diagnostic Mammogram, [facility]. Tissue Density: The breast tissue is heterogeneously dense. This may lower the sensitivity of mammography. Findings: Analyzed By CAD. Asymmetric density at the axillary tail become more pronounced from prior exam. This may represent altered orientation of fibroglandular tissue but further evaluation is recommended. . Otherwise, no significant change. Overall Assessment: Incomplete: need additional imaging evaluation, BI-RAD 0 Management: Special View Mammogram of the left breast. Including spot 3-D MLO, 3-D XCCL, and 3-D lateral views (including far posterior tissues). Targeted left breast ultrasound if any persisting abnormality. [facility] will attempt to contact patient to return for supplemental views and ultrasound if indicated. Electronically signed and approved by: Miguel Wei M.D. Radiologist
== END | disposition home or self-care (01) ==
LOC: RADMAMWWP 12:24
PROVIDERS: ATTEND Family Medicine
DX: Z12.31 Encounter for screening mammogram for malignant neoplasm of breast (principal); Z80.3 Family history of malignant neoplasm of breast
CPT/HCPCS: 77067

== ENCOUNTER → 2022-08-02 | Outpatient (CLI) | payer BC, OTHER ==
--- NOTE | 2022-08-02 15:27 | USB ---
Reason for Exam: Additional evaluation requested from abnormal screening. Patient History: Menarche at age 12. First Full-Term at age 19. Hysterectomy at age 21. Ovarian cancer, age 21. Paternal grandmother had breast cancer, age 47. Paternal cousin had breast cancer, age 32. Paternal aunt (Farrah) had breast cancer, age 60. Paternal aunt (Jeaneth) had breast cancer, age 60. Risk Values: Trish 5 year model risk: 0.5%. NCI Lifetime model risk: 7.2%. Technique: Method: Targeted. Prior Study Comparison: 07/28/2020 Bilateral Diagnostic Mammogram, [facility]. 07/26/2022 Bilateral MG screening mammo w CAD, [facility]. Findings: The upper outer quadrant of the left breast, the axilla of the left breast and the retroareolar of the left breast were scanned. A complete US of all four quadrants of the breast and retro-areolar region were reviewed. No solid or cystic masses are identified.. Overall Assessment: Negative, BI-RAD 1 Management: Screening Mammogram of both breasts in 1 year. A clinical breast exam by your physician is recommended on an annual basis and results should be correlated with mammographic findings. This exam should not preclude additional follow-up of suspicious palpable abnormalities. Results were given to the patient verbally at the time of exam. Electronically signed and approved by: Fredi Meier DO
--- NOTE | 2022-08-02 15:27 | MM ---
Reason for Exam: Additional evaluation requested from abnormal screening. Last screening mammogram was performed less than 1 month ago. Patient History: Menarche at age 12. First Full-Term at age 19. Hysterectomy at age 21. Ovarian cancer, age 21. Paternal grandmother had breast cancer, age 47. Paternal cousin had breast cancer, age 32. Paternal aunt (Farrah) had breast cancer, age 60. Paternal aunt (Jeaneth) had breast cancer, age 60. Risk Values: Trish 5 year model risk: 0.5%. NCI Lifetime model risk: 7.2%. Prior Study Comparison: 07/28/2020 Bilateral Diagnostic Mammogram, [facility]. 07/26/2022 Bilateral MG screening mammo w CAD, [facility]. Tissue Density: Left: There are scattered fibroglandular densities. Findings: Analyzed By CAD. Asymmetry seen within the left breast on MLO view only, this is located in the upper outer aspect of the breast. 3-D imaging was utilized and the finding persisted with masslike appearance. This area is not definitively seen on other views including lateral medial and CC. Further evaluation with right breast ultrasound of the upper outer quadrant is recommended. Overall Assessment: Incomplete: need additional imaging evaluation, BI-RAD 0 Management: Diagnostic Breast Ultrasound of the right breast. A clinical breast exam by your physician is recommended on an annual basis and results should be correlated with mammographic findings. This exam should not preclude additional follow-up of suspicious palpable abnormalities. Results were given to the patient verbally at the time of exam. Electronically signed and approved by: Fredi Meier DO
== END | disposition home or self-care (01) ==
LOC: RADMAMWWP 13:37
PROVIDERS: ATTEND Family Medicine
DX: C56.9 Malignant neoplasm of unspecified ovary (principal); R92.8 Other abnormal and inconclusive findings on diagnostic imaging of breast; Z80.3 Family history of malignant neoplasm of breast
CPT/HCPCS: 77065

== ENCOUNTER → 2023-07-24 | Outpatient (CLI) | payer BC ==
--- NOTE | 2023-07-24 10:36 | MM ---
Reason for Exam: Follow-up at short interval from prior study. Last screening mammogram was performed 12 month(s) ago. Patient History: Menarche at age 12. First Full-Term at age 19. Hysterectomy at age 21. Ovarian cancer, age 21. Paternal grandmother had breast cancer, age 47. Paternal cousin had breast cancer, age 32. Paternal aunt (Farrah) had breast cancer, age 60. Paternal aunt (Jeaneth) had breast cancer, age 60. Risk Values: Trish 5 year model risk: 0.5%. NCI Lifetime model risk: 7.1%. Prior Study Comparison: 07/28/2020 Bilateral Diagnostic Mammogram, [facility]. 07/28/2020 Bilateral Diagnostic Ultrasound, [facility]. 07/26/2022 Bilateral MG screening mammo w CAD, [facility]. 08/02/2022 Left US breast workup limited LT, [facility]. 08/02/2022 Left MG work up mamm w CAD LT, [facility]. Tissue Density: The breast tissue is heterogeneously dense. This may lower the sensitivity of mammography. Findings: Analyzed By CAD. Pattern appears stable. There is a focal asymmetry in the upper outer aspect left breast which is stable from comparison. No interval change is evident. No suspicious groups of microcalcifications, spiculated or lobular masses, architectural distortion or other secondary signs of malignancy are mammographically apparent. Overall Assessment: Benign, BI-RAD 2 Management: Screening Mammogram of both breasts in 1 year. A negative mammogram report should not preclude additional follow up of suspicious palpable abnormalities. Patient should continue monthly self breast exam. A clinical breast exam by your physician is recommended on an annual basis and results should be correlated with mammographic findings. Electronically signed and approved by: Shivam King D.O. Radiologis
== END | disposition home or self-care (01) ==
LOC: RADMAMWWP 10:00
PROVIDERS: ATTEND Family Medicine
DX: R92.0 Mammographic microcalcification found on diagnostic imaging of breast (principal); R92.333 Mammographic heterogeneous density, bilateral breasts; N64.4 Mastodynia; Z80.3 Family history of malignant neoplasm of breast
CPT/HCPCS: 77062; 77066

== ENCOUNTER → 2024-09-11 | Outpatient (CLI) | payer BC ==
[2024-09-11 15:22] LABS: Thyroid Peroxidase Antibodies 29.9 U/mL (0.0-33.0)
[2024-09-12 12:49] LABS: C-ANCA <1:20 Titer (<1:20)
[2024-09-12 14:18] LABS: Thyroid Stim Immun Quant <0.10 IU/L (<0.10)
== END | disposition home or self-care (01) ==
LOC: LABWHC1 11:16
PROVIDERS: ATTEND Student in an Organized Health Care Education/Training Program
DX: M32.10 Systemic lupus erythematosus, organ or system involvement unspecified (principal); H16.223 Keratoconjunctivitis sicca, not specified as Sjogren's, bilateral
CPT/HCPCS: 36415; 83516; 84436; 84443; 84445; 84480; 86235; 86255; 86376; 86800

== ENCOUNTER → 2024-12-12 | Outpatient (CLI) | payer BC ==
--- NOTE | 2024-12-12 13:21 | MM ---
Reason for Exam: Clinical finding. Last mammogram was performed 1 year(s) and 5 month(s) ago. Patient History: Menarche at age 12. First Full-Term at age 19. Hysterectomy at age 21. Ovarian cancer, age 21. Paternal grandmother had breast cancer, age 47. Paternal cousin had breast cancer, age 32. Paternal aunt (Farrah) had breast cancer, age 60. Paternal aunt (Jeaneht) had breast cancer, age 60. Risk Values: Trish 5 year model risk: 0.6%. NCI Lifetime model risk: 7.1%. Tissue Density: The breasts are extremely dense, which lowers the sensitivity of mammography. Findings: Analyzed By CAD. No dominant mass. No architectural distortion. No suspicious grouped calcifications. Overall Assessment: Incomplete: need additional imaging evaluation, BI-RAD 0 Management: Diagnostic Breast Ultrasound of the left breast. . Results were given to the patient verbally at the time of exam. Patient should continue monthly self-breast exams. A clinical breast exam by your physician is recommended on an annual basis. This exam should not preclude additional follow-up of suspicious palpable abnormalities. Note on Trish scores and lifetime risk: 1. A Trish score greater than 3% is considered moderate risk. If this is the case, consider specialist referral to assess eligibility for a risk reducing agent. 2. If overall lifetime risk for the development of breast cancer is 20% or higher, the patient may qualify for future screening with alternating mammogram and breast MRI. [facility], , 12/12/2024 1:18 PM. Electronically signed and approved by: Rj Serrato M.D. Radiologis
--- NOTE | 2024-12-12 13:44 | USB ---
Reason for Exam: Clinical finding. Patient History: Menarche at age 12. First Full-Term at age 19. Hysterectomy at age 21. Ovarian cancer, age 21. Paternal grandmother had breast cancer, age 47. Paternal cousin had breast cancer, age 32. Paternal aunt (Farrah) had breast cancer, age 60. Paternal aunt (Jeaneth) had breast cancer, age 60. Risk Values: Trish 5 year model risk: 0.6%. NCI Lifetime model risk: 7.1%. Technique: Method: Targeted. Prior Study Comparison: 07/26/2022 Bilateral MG screening mammo w CAD, [facility]. 08/02/2022 Left MG work up mamm w CAD LT, [facility]. 07/24/2023 Bilateral MG 3D diag mammo w/cad ARMANDO, [facility]. Findings: The upper outer quadrant of the left breast, the axilla of the left breast and the retroareolar of the left breast were scanned. A US of upper outer quadrant of the breast and axilla, retro-areolar region were reviewed. No solid or cystic masses are identified.. Overall Assessment: Benign, BI-RAD 2 Management: Screening Mammogram of both breasts in 1 year. A clinical breast exam by your physician is recommended on an annual basis and results should be correlated with mammographic findings. This exam should not preclude additional follow-up of suspicious palpable abnormalities. Results were given to the patient verbally at the time of exam. [facility], , 12/12/2024 1:41 PM. Electronically signed and approved by: Rj Serrato M.D. Radiologis
== END | disposition home or self-care (01) ==
LOC: RADMAMWWP 12:46
PROVIDERS: ATTEND Family Medicine
DX: R92.8 Other abnormal and inconclusive findings on diagnostic imaging of breast (principal); R92.343 Mammographic extreme density, bilateral breasts; Z80.3 Family history of malignant neoplasm of breast
CPT/HCPCS: 77062; 77066

== ENCOUNTER 2025-01-03 04:26 | Emergency (ER) | payer BC ==
[2025-01-03 05:06] LABS: Basophils # (A) 0.04 10*3/uL (0.00-0.10); Basophils % (A) 0.2 %; Eosinophils # (A) 0.03 10*3/uL (0.04-0.35); Eosinophils % (A) 0.2 %; HCT 41.6 % (37.2-46.3); HGB 14.9 g/dL (12.0-15.0); Lymphocytes # (A) 0.77 10*3/uL (0.90-5.00); Lymphocytes % (A) 4.8 %; MCH 35.1 pg (27.0-32.0); MCHC 35.8 g/dL (32.0-37.0); MCV 97.9 fL (80.0-97.0); Mean Platelet Volume 10.1 fL (9.5-12.2); Monocytes # (A) 0.82 10*3/uL (0.20-1.00); Monocytes % (A) 5.1 %; Neutrophils # (A) 14.35 10*3/uL (1.80-7.70); Neutrophils % (A) 89.4 %; Platelet Count 238 10*3/uL (140-440); RBC 4.25 10*6/uL (4.10-5.20); RDW 12.3 % (11.5-14.5); WBC 16.06 10*3/uL (4.50-10.00)
[2025-01-03] MEDS: SODIUM CHLORIDE 0.9% 1,000 ML IV STA (05:18)
[2025-01-03] MEDS: ONDANSETRON 4 MG/2 ML VIAL IVP STA ×2 (05:18→08:16)
[2025-01-03 05:28] LABS: ALT 47 U/L (4-34); AST 55 U/L (14-36); African American GFR (CKD) >90 (>60 ml/min/1.73 sqM); Albumin 4.4 g/dL (3.5-5.0); Alkaline Phosphatase 66 U/L (38-126); Amylase 70 U/L (30-110); Anion Gap 9 mmol/L; Blood Urea Nitrogen 22 mg/dL (7-17); Calcium 9.6 mg/dL (8.4-10.2); Carbon Dioxide 25 mmol/L (22-30); Chloride 102 mmol/L (98-107); Glucose 131 mg/dL (74-99); Lipase 194 U/L (23-300); Non-African American GFR(CKD) >90 (>60 ml/min/1.73 sqM); Potassium 4.1 mmol/L (3.5-5.1); Sodium 136 mmol/L (137-145); Total Protein 7.7 g/dL (6.3-8.2)
--- NOTE | 2025-01-03 05:34 | ED ---
Nausea/Vomiting/Diarrhea HPI - General Chief complaint: Nausea/Vomiting/Diarrhea Stated complaint: Vomiting Time Seen by Provider: 01/03/25 04:41 Source: family Mode of arrival: ambulatory Limitations: no limitations - History of Present Illness Initial comments: This patient is a 44-year-old woman who presents to have evaluation for nausea and vomiting that had come on tonight. The patient had been working in her yard yesterday and also had eaten some shrimp. Tonight she began to have vomiting and has had multiple episodes. She is not tolerating fluids currently. She did not initially have abdominal pain after having had a number of rounds of vomiting she did develop some pain which is crampy in diffuse. No change in bowel movements. No change in urination. No fever or chills. MD complaint: nausea, vomiting -: hour(s) Description of Vomiting: food contents, bilious Associated Abdominal Pain: Yes Location: diffuse Severity: mild Quality: cramping Consistency: intermittent Worsens with: vomiting Associated Symptoms: denies other symptoms - Related Data Home Medications Medication Instructions Recorded Confirmed ALPRAZolam [Xanax] 1 mg PO BID PRN 04/01/18 04/28/22 Previous Rx's Medication Instructions Recorded Ondansetron Odt [Zofran ODT] 4 mg PO Q8HR PRN #10 tab 01/03/25 Allergies Allergy/AdvReac Type Severity Reaction Status Date / Time adhesive tape Allergy blisters Verified 01/03/25 04:33 Antihistamines - Alkylamine Allergy Rash/Hives Verified 01/03/25 04:33 Antihistamines - Ethanolamine Allergy Rash/Hives Verified 01/03/25 04:33 Antihistamines - Allergy Rash/Hives Verified 01/03/25 04:33 Ethylenediamine Antihistamines - Piperazine Allergy Rash/Hives Verified 01/03/25 04:33 Antihistamines - Piperidine Allergy Rash/Hives Verified 01/03/25 04:33 codeine Allergy Anaphylaxis Verified 01/03/25 04:33 diphenhydramine HCl Allergy Vomiting Verified 01/03/25 04:33 [From Benadryl] erythromycin base Allergy Unknown Verified 01/03/25 04:33 morphine Allergy Unknown Verified 01/03/25 04:33 Sulfa (Sulfonamide Allergy Unknown Verified 01/03/25 04:33 Antibiotics) sulfamethoxazole Allergy Unknown Verified 01/03/25 04:33 [From Bactrim] trimethoprim [From Bactrim] Allergy Unknown Verified 01/03/25 04:33 hydromorphone [From Dilaudid] AdvReac Unknown Verified 01/03/25 04:33 Penicillins AdvReac Rash/Hives Verified 01/03/25 04:33 bioxen Allergy Unknown Uncoded 01/03/25 04:33 Review of Systems ROS Statement: Those systems with pertinent positive or pertinent negative responses have been documented in the HPI. ROS Other: All systems not noted in ROS Statement are negative. Constitutional: Denies: fever, chills, weakness Respiratory: Denies: cough, dyspnea Cardiovascular: Denies: chest pain, palpitations, edema Gastrointestinal: Reports: abdominal pain, nausea, vomiting. Denies: diarrhea, constipation, hematemesis, melena, hematochezia Genitourinary: Denies: dysuria, hematuria Musculoskeletal: Denies: back pain Skin: Denies: rash Neurological: Denies: headache, weakness Past Medical History Past Medical History: Cancer, GERD/Reflux, Thyroid Disorder Additional Past Medical History / Comment(s): Migraines, hx cervical cancer, Misti's, hives. Fainting episodes X2 months. lupus History of Any Multi-Drug Resistant Organisms: None Reported Past Surgical History: Appendectomy, Cholecystectomy, Hysterectomy Additional Past Surgical History / Comment(s): Multiple laparoscopies. Past Anesthesia/Blood Transfusion Reactions: Malignant Hyperthermia, Motion Sickness, Postoperative Nausea & Vomiting (PONV) Additional Past Anesthesia/Blood Transfusion Reaction / Comment(s): "Grandmother had hyperthermia with anesthesia, not sure if it was malignant hyperthermia". Pt states she was tested and ok. Past Psychological History: Anxiety Smoking Status: Former smoker Past Alcohol Use History: None Reported Past Drug Use History: None Reported - Past Family History Sister(s) Family Medical History: Cancer Mother Family Medical History: Cancer General Exam Limitations: no limitations General appearance: alert, in no apparent distress Head exam: Present: atraumatic, normocephalic Eye exam: Present: normal appearance. Absent: scleral icterus, conjunctival injection ENT exam: Present: normal oropharynx Neck exam: Present: normal inspection Respiratory exam: Present: normal lung sounds bilaterally. Absent: respiratory distress, wheezes, rales, rhonchi, stridor, accessory muscle use Cardiovascular Exam: Present: regular rate, normal rhythm, normal heart sounds. Absent: systolic murmur, diastolic murmur, rubs, gallop GI/Abdominal exam: Present: soft. Absent: distended, tenderness, guarding, rebo und, rigid, mass, hernia Extremities exam: Present: normal inspection, normal capillary refill. Absent: pedal edema, calf tenderness Back exam: Present: normal inspection. Absent: CVA tenderness (R), CVA tenderness (L) Neurological exam: Present: alert Skin exam: Present: warm, dry, intact, normal color. Absent: rash Course Vital Signs 01/03/25 01/03/25 01/03/25 04:31 06:59 08:18 Temperature Pulse Rate 92 90 85 Respiratory 18 18 16 Rate Blood Pressure 123/73 111/63 100/57 O2 Sat by Pulse 99 99 99 Oximetry 01/03/25 08:57 Temperature 97.9 F Pulse Rate 78 Respiratory 18 Rate Blood Pressure 105/67 O2 Sat by Pulse 99 Oximetry Medical Decision Making - Medical Decision Making Was pt. sent in by a medical professional or institution (, PA, PULP PRESS TENDER, urgent care, hospital, or retirement...) When possible be specific @ -[No] Did you speak to anyone other than the patient for history (EMS, parent, family, police, friend...)? What history was obtained from this source @ -[The patient's did contribute small amount to history Did you review nursing and triage notes (agree or disagree)? Why? @ -[I reviewed and agree with nursing and triage notes] Were old charts reviewed (outside hosp., previous admission, EMS record, old EKG, old radiological studies, urgent care reports/EKG's, retirement records)? Report findings @ -[No old charts were reviewed] Differential Diagnosis (chest pain, altered mental status, abdominal pain women, abdominal pain men, vaginal bleeding, weakness, fever, dyspnea, syncope, headache, dizziness, GI bleed, back pain, seizure, CVA, palpatations, mental health, musculoskeletal)? @ -[Differential Abdominal Pain Women: Appendicitis, Cholecystitis, diverticulosis, ischemic bowel, pancreatitis, hepatitis, UTI, gastroenteritis, AAA, incarcerated hernia, bowel obstruction, constipation, inflammatory bowel, hepatitis, peptic ulcer disease, splenic infarction, perforated viscus, vulvitis, ovarian torsion, PID, kidney stone, placenta abruption, this is not meant to be an all-inclusive list EKG interpreted by me (3pts min.). @ -[As above] X-rays interpreted by me (1pt min.). @ -[None done] CT interpreted by me (1pt min.). @ -[None done] U/S interpreted by me (1pt. min.). @ -[None done] What testing was considered but not performed or refused? (CT, X-rays, U/S, labs)? Why? @ -[None] What meds were considered but not given or refused? Why? @ -[None] Did you discuss the management of the patient with other professionals (professionals i.e. , PA, PULP PRESS TENDER, lab, RT, psych nurse, mental health social worker, oxygen tank filler, teacher, chief sales officer, housing case manager)? Give summary @ -[No] Was smoking cessation discussed for >3mins.? @ -[No] Was critical care preformed (if so, how long)? @ -[No] Were there social determinants of health that impacted care today? How? (Homelessness, low income, unemployed, alcoholism, drug addiction, transportation, low edu. Level, literacy, decrease access to med. care, retirement, rehab)? @ -[No] Was there de-escalation of care discussed even if they declined (Discuss DNR or withdrawal of care, Hospice)? DNR status @ -[No] What co-morbidities impacted this encounter? (DM, HTN, Smoking, COPD, CAD, Cancer, CVA, ARF, Chemo, Hep., AIDS, mental health diagnosis, sleep apnea, morbid obesity)? @ -[None] Was patient admitted / discharged? Hospital course, mention meds given and route, prescriptions, significant lab abnormalities, going to OR and other pertinent info. @ -[Patient is a 44-year-old woman here with persistent nausea and vomiting. The patient's physical exam does not reveal evidence of acute surgical condition. the patient did require multiple rounds of antiemetics and fluids but then was feeling better. At that point she wanted to go home. Discussed appropriate further care and follow-up as well as return parameters. Undiagnosed new problem with uncertain prognosis? @ -[No] Drug Therapy requiring intensive monitoring for toxicity (Heparin, Nitro, Insulin, Cardizem)? @ -[No] Were any procedures done? @ -[No] Diagnosis/symptom? @ -[Acute gastroenteritis Acute, or Chronic, or Acute on Chronic? @ -[Acute Uncomplicated (without systemic symptoms) or Complicated (systemic symptoms)? @ -[Uncomplicated Side effects of treatment? @ -[No] Exacerbation, Progression, or Severe Exacerbation? @ -[No] Poses a threat to life or bodily function? How? (Chest pain, USA, CT, pneumonia, PE, COPD, DKA, ARF, appy, cholecystitis, CVA, Diverticulitis, Homicidal, Suicidal, threat to staff... and all critical care pts) @ -[No] All treatments are based on ideal body weight as in ED triage - Lab Data Result diagrams: 01/03/25 05:00 01/03/25 05:00 Lab Results 01/03/25 01/03/25 01/03/25 Range/Units 05:00 05:00 05:00 WBC 16.06 H (4.50-10.00) 10*3/uL RBC 4.25 (4.10-5.20) 10*6/uL Hgb 14.9 (12.0-15.0) g/dL Hct 41.6 (37.2-46.3) % MCV 97.9 H (80.0-97.0) fL MCH 35.1 H (27.0-32.0) pg MCHC 35.8 (32.0-37.0) g/dL Plt Count 238 (140-440) 10*3/uL MPV 10.1 (9.5-12.2) fL Immature Gran % (Auto) 0.3 % Neutrophils % 89.4 % Lymphocytes % 4.8 % Monocytes % 5.1 % Eosinophils % 0.2 % Basophils % 0.2 % Immature Gran # 0.05 H (0.00-0.04) 10*3/uL Neutrophils # 14.35 H (1.80-7.70) 10*3/uL Lymphocytes # 0.77 L (0.90-5.00) 10*3/uL Monocytes # 0.82 (0.20-1.00) 10*3/uL Eosinophils # 0.03 L (0.04-0.35) 10*3/uL Basophils # 0.04 (0.00-0.10) 10*3/uL Sodium 136 L (137-145) mmol/L Potassium 4.1 (3.5-5.1) mmol/L Chloride 102 (98-107) mmol/L Carbon Dioxide 25 (22-30) mmol/L Anion Gap 9 mmol/L BUN 22 H (7-17) mg/dL Creatinine 0.65 (0.52-1.04) mg/dL Est GFR (CKD-EPI)AfAm >90 (>60 ml/min/1.73 sqM) Est GFR (CKD-EPI)NonAf >90 (>60 ml/min/1.73 sqM) Glucose 131 H (74-99) mg/dL Calcium 9.6 (8.4-10.2) mg/dL Total Bilirubin 1.0 (0.2-1.3) mg/dL AST 55 H (14-36) U/L ALT 47 H (4-34) U/L Alkaline Phosphatase 66 (38-126) U/L Total Protein 7.7 (6.3-8.2) g/dL Albumin 4.4 (3.5-5.0) g/dL Amylase 70 (30-110) U/L Lipase 194 (23-300) U/L HCG, Qual Not Detected Urine Color Urine Appearance (Clear) Urine pH (5.0-8.0) Ur Specific [place] (1.001-1.035) Urine Protein (Negative) Urine Glucose (UA) (Negative) Urine Ketones (Negative) Urine Blood (Negative) Urine Nitrite (Negative) Urine Bilirubin (Negative) Urine Urobilinogen (<2.0) mg/dL Ur Leukocyte Esterase (Negative) Urine RBC (0-5) /hpf Urine WBC (0-5) /hpf Ur Squamous Epith Cells (0-4) /hpf Urine Mucus (None) /hpf 01/03/25 Range/Units 06:42 WBC (4.50-10.00) 10*3/uL RBC (4.10-5.20) 10*6/uL Hgb (12.0-15.0) g/dL Hct (37.2-46.3) % MCV (80.0-97.0) fL MCH (27.0-32.0) pg MCHC (32.0-37.0) g/dL Plt Count (140-440) 10*3/uL MPV (9.5-12.2) fL Immature Gran % (Auto) % Neutrophils % % Lymphocytes % % Monocytes % % Eosinophils % % Basophils % % Immature Gran # (0.00-0.04) 10*3/uL Neutrophils # (1.80-7.70) 10*3/uL Lymphocytes # (0.90-5.00) 10*3/uL Monocytes # (0.20-1.00) 10*3/uL Eosinophils # (0.04-0.35) 10*3/uL Basophils # (0.00-0.10) 10*3/uL Sodium (137-145) mmol/L Potassium (3.5-5.1) mmol/L Chloride (98-107) mmol/L Carbon Dioxide (22-30) mmol/L Anion Gap mmol/L BUN (7-17) mg/dL Creatinine (0.52-1.04) mg/dL Est GFR (CKD-EPI)AfAm (>60 ml/min/1.73 sqM) Est GFR (CKD-EPI)NonAf (>60 ml/min/1.73 sqM) Glucose (74-99) mg/dL Calcium (8.4-10.2) mg/dL Total Bilirubin (0.2-1.3) mg/dL AST (14-36) U/L ALT (4-34) U/L Alkaline Phosphatase (38-126) U/L Total Protein (6.3-8.2) g/dL Albumin (3.5-5.0) g/dL Amylase (30-110) U/L Lipase (23-300) U/L HCG, Qual Urine Color Colorless Urine Appearance Clear (Clear) Urine pH 7.0 (5.0-8.0) Ur Specific [place] 1.018 (1.001-1.035) Urine Protein Negative (Negative) Urine Glucose (UA) Negative (Negative) Urine Ketones 1+ H (Negative) Urine Blood Trace H (Negative) Urine Nitrite Negative (Negative) Urine Bilirubin Negative (Negative) Urine Urobilinogen <2.0 (<2.0) mg/dL Ur Leukocyte Esterase Negative (Negative) Urine RBC 2 (0-5) /hpf Urine WBC 1 (0-5) /hpf Ur Squamous Epith Cells 1 (0-4) /hpf Urine Mucus Rare H (None) /hpf Disposition Clinical Impression: Gastroenteritis Disposition: HOME SELF-CARE Condition: Good Instructions (If sedation given, give patient instructions): Acute Nausea and Vomiting (ED) Prescriptions: Ondansetron Odt [Zofran ODT] 4 mg PO Q8HR PRN #10 tab PRN Reason: Nausea Is patient prescribed a controlled substance at d/c from ED?: No Referrals: Emmanuel Akers MD [Primary Care Provider] - 1-2 days
[2025-01-03] MEDS: SODIUM CHLORIDE 0.9% 1,000 ML IV ONE (06:33)
[2025-01-03 06:55] LABS: Appearance,Urine Clear (Clear); Bilirubin,Urine Negative (Negative); Blood,Urine Trace (Negative); Color,Urine Colorless; Glucose,Urine (UA) Negative (Negative); Ketones,Urine 1+ (Negative); Leukocyte Esterase,Urine Negative (Negative); Mucus,Urine Rare /hpf; Nitrite,Urine Negative (Negative); Protein,Urine Negative (Negative); RBC,Urine 2 /hpf (0-5); Specific Gravity,Urine 1.018 (1.001-1.035); Squamous Epithelial Cell,Urine 1 /hpf (0-4); Urobilinogen,Urine <2.0 mg/dL (<2.0); WBC,Urine 1 /hpf (0-5)
[2025-01-03] MEDS: METOCLOPRAMIDE 5 MG/ML 2 ML VIAL IVP STA (06:57)
[2025-01-03] MEDS: FAMOTIDINE 20 MG TAB PO STA (08:16)
[2025-01-03 08:58] VITALS: BP 105/67; PULSE 78; RESP 18; TEMP 97.9
== END 2025-01-03 09:05 | disposition home or self-care (01) ==
LOC: EC 04:26
DX: K52.9 Noninfective gastroenteritis and colitis, unspecified (principal); Z87.891 Personal history of nicotine dependence; Z91.048 Other nonmedicinal substance allergy status; Z88.2 Allergy status to sulfonamides; Z88.5 Allergy status to narcotic agent; Z88.0 Allergy status to penicillin; Z88.1 Allergy status to other antibiotic agents; Z88.8 Allergy status to other drugs, medicaments and biological substances
CPT/HCPCS: 36415; 80053; 82150; 83690; 85025; 81001; 84703; 99284; 96374; 96375; 96376; 96361 ×3; J2765; J2405